=== PATIENT | female | born 1985 | race African-American/Black ===

== ENCOUNTER → 2022-11-13 08:27 | Outpatient (BNVA) | payer OTHER, SELFPAY | PROVIDERS: PCP Internal Medicine Hematology & Oncology; Visit Provider Psychiatry & Neurology Neurology | DX: G43.719 Chronic migraine without aura, intractable, without status migrainosus (principal); G44.40 Drug-induced headache, not elsewhere classified, not intractable | CPT/HCPCS: 99202 ==